=== PATIENT | female | born 1975 | race Caucasian/White ===

== ENCOUNTER → 2016-07-25 | Outpatient (CLI) | payer BC ==
--- NOTE | 2016-07-25 14:28 | CR ---
EXAMINATION: Left ankle HISTORY: Pain COMPARISON: None TECHNIQUE: 3 views FINDINGS/IMPRESSION: There is screw and plate hardware fixating a nondisplaced distal tibial fractur e. Screw and plate hardware fixate the adjacent distal fibula. The remaining osseous structures and joint spaces appear intact.
== END ==
LOC: MW.CHORTHO 07:46
PROVIDERS: ATTEND Physician Assistant
DX: M25.572 Pain in left ankle and joints of left foot (principal); Z96.7 Presence of other bone and tendon implants; S82.302A Unspecified fracture of lower end of left tibia, initial encounter for closed fracture
CPT/HCPCS: 73610-26-LT; 73610-LT

== ENCOUNTER 2017-01-24 06:25 | Day surgery (SDC) | payer BC ==
[~2017-01-24 06:25] MED LIST: Bupivacaine 0.25% 10 ML SDV ONE; Clindamycin Phosphate in D5W 600 MG in Premix Bag 50 BAG IV SCH; Lactated Ringers 1,000 ML IV SCH
[2017-01-24] MEDS ORDERED: fentaNYL 100 MCG/2 ML SDV ONE (07:38)
[2017-01-24] MEDS ORDERED: Propofol 200 MG/20 ML SDV ONE (07:38)
[2017-01-24] MEDS ORDERED: Lidocaine 2% 5 ML SDV ONE (07:38)
[2017-01-24] MEDS ORDERED: Midazolam 1 MG/ML 2 ML SDV ONE (07:39)
[2017-01-24] MEDS ORDERED: Ondansetron 4 MG/2 ML SDV ONE (07:39)
[2017-01-24] MEDS ORDERED: Succinylcholine/Normal Saline 200 MG/10 ML Syringe ONE (07:39)
[2017-01-24] MEDS ORDERED: Ketorolac 30 MG/ML SDV ONE (07:39)
--- NOTE | 2017-01-24 07:53 | PCM.PREANE ---
Preanesthetic Assessment - Procedure Proposed Procedure: Removal of hardware Left distal tib-fib - Anesthesia/Transfusion/Family Hx Anesthesia History: Prior Anesthesia Without Reaction Transfusion History: No Prior Transfusion(s) - Review of Systems General: No Symptoms Pulmonary: No Symptoms Cardiovascular: No Symptoms Gastrointestinal: Other (IBS) Neurological: Gait Disturbance (due to left leg pain) Other: Reports: Depression, Anxiety - Physical Assessment O2 Sat by Pulse Oximetry: 97 Respiratory Rate: 16 Vital Signs: Last Vital Signs Temp 98.1 F 01/24/17 07:02 Pulse 81 01/24/17 07:02 Resp 16 01/24/17 07:02 BP 126/88 01/24/17 07:02 Pulse Ox 97 01/24/17 07:02 Height: 5 ft 4 in Weight: 157 lb ASA Class: 2 Mental Status: Alert & Oriented x3 Dentition: Reports: Normal Dentition Thyro-Mental Finger Breadths: 4 Mouth Opening Finger Breadths: 3 ROM/Head Extension: Full Lungs: Clear to Auscultation, Normal Respiratory Effort Cardiovascular: Regular Rate, Regular Rhythm, No Murmurs - Allergies Allergies/Adverse Reactions: Allergies Allergy/AdvReac Type Severity Reaction Status Date / Time cefuroxime axetil Allergy Hives Verified 09/01/14 13:26 [From Ceftin] levofloxacin [From Levaquin] Allergy Hives Verified 09/01/14 13:26 pineapple Allergy Stomach Verified 09/01/14 13:26 Upset Cherries Allergy Stomach Uncoded 09/01/14 13:26 Upset Green Beans Allergy Stomach Uncoded 09/01/14 13:26 Upset Rashad Appleton Allergy Sneezing Uncoded 09/01/14 13:26 Tomato Allergy Stomach Uncoded 09/01/14 13:26 Upset tuna Allergy Stomach Uncoded 01/18/17 14:20 Upset - Blood Blood Available: No Product(s) Available: None - Acknowledgements Anesthesia Type Planned: General Anesthesia (LMA) Pt an Appropriate Candidate for the Planned Anesthesia: Yes Alternatives and Risks of Anesthesia Discussed w Pt/Guardian: Yes Pt/Guardian Understands and Agrees with Anesthesia Plan: Yes PreAnesthesia Questionnaire - Past Health History Medical/Surgical History: Denies Medical/Surgical History Cardiovascular History: Reports: None Respiratory History: Reports: None Gastrointestinal History: Reports: Chronic Constipation, Irritable Bowel Syndrome Other Gastrointestinal History: Occasional heartburn Genitourinary History: Reports: None [employer] History: Reports: Other OB/BYN History: Abnormal PAP, 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, hx LEEP Musculoskeletal History: Reports: Fracture, Fibromyalgia Neurological History: Reports: None Psychiatric History: Reports: Anxiety, Depression Other Endocrine/Metabolic History: History Gestational diabetes in Other Hematologic History: I think I bleed easily "bruise easily" Immunologic History: Reports: None Oncologic (Cancer) History: Reports: Cervix Dermatologic History: Reports: None - Past Surgical History Head Surgeries/Procedures: Reports: None HEENT Surgical History: Reports: Oral Surgery, Tonsillectomy Female Surgical History: Reports: Hysterectomy, LEEP Musculoskeletal Surgical History: Reports: ORIF Other Musculoskeletal Surgeries/Procedures:: ORIF fx left tib/fib - SUBSTANCE USE Smoking Status *Q: Former Smoker Recreational Drug Use History: No - CURRENT (IN HOUSE) MEDS Current Meds: Current Medications Hydrocodone Bitart/Acetaminophen (Peak 325-5 Mg) 1 - 2 tab PO Q4H PRN PRN Reason: Pain Clindamycin Phosphate 600 mg/ (Premix) 50 mls @ 100 mls/hr IV ONCALL [facility] Last Admin: 01/24/17 07:00 Dose: 100 mls/hr Lactated Ringer's (Ringers, Lactated) 1,000 mls @ 100 mls/hr IV ASDIRECTED [facility] Last Admin: 01/24/17 06:55 Dose: 100 mls/hr Discontinued Medications Bupivacaine HCl (Sensorcaine-Mpf 0.25%) Confirm Administered Dose 20 ml .ROUTE .STK-MED ONE Stop: 01/23/17 15:03 Fentanyl (Sublimaze) Confirm Administered Dose 300 mcg .ROUTE .STK-MED ONE Stop: 01/24/17 07:39 Ketorolac Tromethamine (Toradol) Confirm Administered Dose 30 mg .ROUTE .STK- MED ONE Stop: 01/24/17 07:40 Lidocaine (Xylocaine-Mpf 2%) Confirm Administered Dose 10 ml .ROUTE .STK-MED ONE Stop: 01/24/17 07:39 Midazolam HCl (Versed 1 Mg/Ml) Confirm Administered Dose 2 mg .ROUTE .STK-MED ONE Stop: 01/24/17 07:40 Ondansetron HCl (Zofran) Confirm Administered Dose 4 mg .ROUTE .STK-MED ONE Stop: 01/24/17 07:40 Propofol (Diprivan 20 Ml) Confirm Administered Dose 400 mg .ROUTE .STK-MED ONE Stop: 01/24/17 07:39 Succinylcholine Chloride (Succinylcholine In Ns Pf) Confirm Administered Dose 200 mg .ROUTE .STK-MED ONE Stop: 01/24/17 07:40
[2017-01-24] MEDS ORDERED: Acetaminophen/HYDROcodone 325-5 MG Tab PO PRN (08:00)
--- NOTE | 2017-01-24 09:28 | PCM.OPNOTE ---
- General Post-Op/Procedure Note Date of Surgery/Procedure: 01/24/17 Operative Procedure(s): HWR left distal tibia and fibula Post-Op Diagnosis: painful retained HW left ankle Anesthesia Technique: General LMA Primary Surgeon: Manju Lazar Lith[employer] General Worker: Mckenzie Rodríguez in mLs: 5 Condition: Good Free Text/Narrative:: tt=27 min #[id number]
[2017-01-24] MEDS: fentaNYL 100 MCG/2 ML SDV IVPUSH PRN ×2 (09:57→10:07)
--- NOTE | 2017-01-24 10:01 | PCM.POSTAN ---
POST ANESTHESIA ASSESSMENT - MENTAL STATUS Mental Status: Alert, Oriented - RESPIRATORY Respiratory Status: Respiratory Rate WNL, Airway Patent, O2 Saturation Stable - CARDIOVASCULAR CV Status: Pulse Rate WNL, Blood Pressure Stable - GASTROINTESTINAL GI Status: No Symptoms - PAIN Pain Score: 7 (will treat) - POST OP HYDRATION Hydration Status: Adequate & Stable
[2017-01-24] MEDS ORDERED: fentaNYL 100 MCG/2 ML SDV IVPUSH PRN (10:38)
--- NOTE | 2017-01-24 11:42 | PCM48HPAN ---
Post Anesthesia Note - EVALUATION WITHIN 48HRS OF ANESTHETIC Vital Signs in Normal Range: Yes Patient Participated in Evaluation: Yes Respiratory Function Stable: Yes Airway Patent: Yes Cardiovascular Function Stable: Yes Hydration Status Stable: Yes Pain Control Satisfactory: Yes (probably will need analgesics) Nausea and Vomiting Control Satisfactory: Yes Mental Status Recovered: Yes
--- NOTE | 2017-01-24 14:10 | OR ---
SURGEON: Manju Lazar MD DATE OF PROCEDURE: 01/24/2017 PREOPERATIVE DIAGNOSIS: Painful retained hardware, left distal tibia and fibula. POSTOPERATIVE DIAGNOSIS: Painful retained hardware, left distal tibia and fibula. PROCEDURE: Hardware removal, left distal tibia and fibula. COUNTRY SINGER: Mckenzie Rodríguez PA-C. ANESTHESIA: General. ESTIMATED BLOOD LOSS: 5 mL. TOURNIQUET TIME: 27 minutes. COMPLICATIONS: None. DVT PROPHYLAXIS: Not indicated. IMPLANTS USED: None. BRIEF HISTORY: Nany is a 41-year-old female, who has had complaint of progressive left ankle pain. She previously underwent open reduction and internal fixation of a left distal tibia and fibula fracture in [facility]. She went on to heal the fracture well. She continued to be bothered by the hardware. At that time, I recommended surgical removal. The risks and goals of the procedure were discussed with the patient and were documented preoperatively. She agreed to proceed. DESCRIPTION OF PROCEDURE: The patient was properly identified and brought to the operating room. She was transferred from the OR cart and placed on operating table in supine position. General anesthesia was administered. After adequate anesthesia was obtained, a well-padded tourniquet was applied to the left lower extremity. The left lower extremity was then prepped in standard fashion using ChloraPrep solution. It was then sterilely draped. A time-out was performed to ensure correct site and procedure. Preoperative antibiotics were given. The surgical site had been marked preoperatively. An Esmarch was used to exsanguinate the left lower extremity and the tourniquet was inflated to 250 mmHg. An incision was made over the anterior tibia over the site of the previous incision. The subcutaneous tissues were incised. The anterior tibialis tendon was identified and was retracted. The plate was immediately evident. The soft tissue was cleared from the plate. The screws were exposed. The inter- fragmentary as well as the screws from the plate were removed without difficulty. The plate was then removed. The wound was copiously irrigated with saline solution. The deep tissues were closed with 0 Vicryl. The subcutaneous tissues were closed with 2-0 Vicryl and the skin was closed with mikel. I then turned my attention to the lateral incision. Incision was made over the site of the previous incision. The subcutaneous tissues were dissected using a tenotomy scissor. The superficial peroneal nerve was not encountered. The peroneal tendon and musculature were identified. Just anterior to this, the plate was identified. It was cleared of soft tissue. The screws were removed without difficulty and the plate was removed. The wound was again copiously irrigated with saline solution. The fascial layer was loosely reapproximated using 0 Vicryl. The subcutaneous tissues were closed with 2-0 Vicryl and the skin was closed with mikel. The tourniquet was deflated. 0.5% Marcaine was injected around the incision sites. Xeroform gauze was placed over the wound and a bulky dressing was applied. She was awakened from her anesthetic and transferred back to the operating room cart. She was brought to recovery room in stable condition. All needle and sponge counts were correct. BROCK REDDY /[id number]
[2017-01-24 14:33] VITALS: BP 111/57
--- NOTE | 2017-01-25 09:15 | CR ---
EXAMINATION: Left ankle HISTORY: Hardware removal COMPARISON: 12/05/2016 TECHNIQUE: Single view FINDINGS/IMPRESSION: Postoperative control films demonstrate interval removal of distal tibia and fib belle hardware.
== END 2017-01-24 12:15 | disposition home or self-care (01) ==
LOC: MW.SDS 06:25
PROVIDERS: ATTEND Orthopaedic Surgery
DX: T84.84XA Pain due to internal orthopedic prosthetic devices, implants and grafts, initial encounter (principal); M79.7 Fibromyalgia; K58.1 Irritable bowel syndrome with constipation; F41.9 Anxiety disorder, unspecified; F32.9 Major depressive disorder, single episode, unspecified; Z87.891 Personal history of nicotine dependence; Z88.1 Allergy status to other antibiotic agents; Z91.013 Allergy to seafood; Z91.018 Allergy to other foods; Z91.048 Other nonmedicinal substance allergy status; Z79.899 Other long term (current) drug therapy; Z98.890 Other specified postprocedural states
CPT/HCPCS: 20680; 76000; A9270; J1885; J2250; J2405; J3010; J7120; 01480; 88300; J2704

== ENCOUNTER 2017-10-24 20:19 | Emergency (ER) | payer BC ==
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
[2017-10-24] MEDS: Morphine 2 MG/ML Syringe IVPUSH ONE ×3 (20:32→23:03)
[2017-10-24] MEDS: Ondansetron 4 MG/2 ML SDV IVPUSH ONE (20:34)
[2017-10-24] MEDS: Ondansetron 4 MG/2 ML SDV ONE (20:44)
[2017-10-24] MEDS: Diphtheria,Pertussis(Acell),Tetanus Vaccine 0.5 ML Syringe IM ONE (21:06)
[2017-10-24 21:08] LABS: CHLORIDE,CL 104 mmol/L (98-107); SODIUM,NA 140 mmol/L (136-145)
[2017-10-24] MEDS: Sulfamethoxazole/Trimethoprim 800-160 MG Tab PO ONE (21:10)
[2017-10-24] MEDS: Morphine 2 MG/ML Syringe ONE (21:51)
[2017-10-24] MEDS: Lidocaine 1% 50 ML MDV ONE (21:51)
[2017-10-24] MEDS: Bacitracin Oint 1 GM U/D Packet TOP ONE (22:15)
[2017-10-24] MEDS: Lidocaine 1% 20 ML MDV INJECT ONE (22:59)
[2017-10-24 23:10] VITALS: BP 133/96
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
== END 2017-10-24 23:20 | disposition home or self-care (01) ==
LOC: MW.ED 20:19
DX: S62.632B Displaced fracture of distal phalanx of right middle finger, initial encounter for open fracture (principal); S62.634B Displaced fracture of distal phalanx of right ring finger, initial encounter for open fracture; S62.636B Displaced fracture of distal phalanx of right little finger, initial encounter for open fracture; S62.622A Displaced fracture of middle phalanx of right middle finger, initial encounter for closed fracture; S62.624A Displaced fracture of middle phalanx of right ring finger, initial encounter for closed fracture; Z23 Encounter for immunization; Z91.018 Allergy to other foods; Z88.1 Allergy status to other antibiotic agents; Z88.8 Allergy status to other drugs, medicaments and biological substances; V86.69XA Passenger of other special all-terrain or other off-road motor vehicle injured in nontraffic accident, initial encounter
CPT/HCPCS: 36415; 64450; 71045; 72040; 72170; 73130; 80053; 85025; 90471; 90715; 96374; 96375; 96376; 99284; A9270; J2270; J2405

== ENCOUNTER 2017-10-26 08:59 | Day surgery (SDC) | payer OTHER, BC ==
[~2017-10-26 08:59] MED LIST changes: +Acetaminophen/HYDROcodone 325-5 MG Tab PO PRN; -Bupivacaine 0.25% 10 ML SDV ONE; +Bupivacaine 0.25%/EPINEPHrine 1:200,000 10 ML SDV INJECT ONE; +Bupivacaine 0.25%/EPINEPHrine 1:200,000 10 ML SDV ONE; -Clindamycin Phosphate in D5W 600 MG in Premix Bag 50 BAG IV SCH; +Lidocaine 2% 5 ML SDV ONE; +Midazolam 1 MG/ML 2 ML SDV ONE; +Ondansetron 4 MG/2 ML SDV ONE; +Propofol 200 MG/20 ML SDV ONE; +ceFAZolin/Dextrose,Iso-Osmotic 2 GM/50 ML Duplex Bag IV ONE; +fentaNYL 250 MCG/5 ML SDV ONE
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
[2017-10-26] MEDS ORDERED: Clindamycin Phosphate in D5W 600 MG in Premix Bag 1 BAG IV ONE ×2 (10:00)
[2017-10-26] MEDS ORDERED: Phenylephrine/Normal Saline 100 MCG/ML 10 ML Syringe ONE (11:27)
[2017-10-26] MEDS ORDERED: ePHEDrine 50 MG/ML SDV ONE (11:39)
[2017-10-26] MEDS ORDERED: fentaNYL 100 MCG/2 ML SDV IVPUSH PRN (11:41)
[2017-10-26] MEDS ORDERED: Ketorolac 30 MG/ML SDV ONE (11:53)
--- NOTE | 2017-10-26 12:31 | PCM.POSTAN ---
POST ANESTHESIA ASSESSMENT - MENTAL STATUS Mental Status: Alert, Oriented - RESPIRATORY Respiratory Status: Respiratory Rate WNL, Airway Patent, O2 Saturation Stable - CARDIOVASCULAR CV Status: Pulse Rate WNL, Blood Pressure Stable - GASTROINTESTINAL GI Status: No Symptoms - PAIN Pain Score: 0 - POST OP HYDRATION Hydration Status: Adequate & Stable
--- NOTE | 2017-10-26 13:36 | PCM48HPAN ---
Post Anesthesia Note - EVALUATION WITHIN 48HRS OF ANESTHETIC Vital Signs in Normal Range: Yes Patient Participated in Evaluation: Yes Respiratory Function Stable: Yes Airway Patent: Yes Cardiovascular Function Stable: Yes Hydration Status Stable: Yes Pain Control Satisfactory: Yes Nausea and Vomiting Control Satisfactory: Yes Mental Status Recovered: Yes Resp Rate: 14 - COMMENTS/OBSERVATIONS Free Text/Narrative:: Pt doing well postop with no complaints of pain or nausea at this time.
[2017-10-26 16:00] VITALS: BP 108/60
--- NOTE | 2017-10-26 22:08 | PCM.OPNOTE ---
- General Post-Op/Procedure Note Date of Surgery/Procedure: 10/26/17 Operative Procedure(s): closed reduction pin fixation of the right middle and ring finger middle pahlanx fractures, nail bed repair of the right middle, ring and small fingers Pre Op Diagnosis: right middle and ring finger middle pahlanx fractures, nail bed lacerations of the right middle, ring and small fingers Post-Op Diagnosis: Same Anesthesia Technique: General LMA, Local Primary Surgeon: Chapis Eid [employer] Science Teacher: Carleen Suarez Reason Naval Science Teacher Was Necessary: retraction, prepping draping and closure assistance Complications: None Condition: Good Free Text/Narrative:: Intake & Output 10/26/17 10/26/17 10/26/17 07:59 15:59 23:59 Intake Total 1100 Balance 1100
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
== END 2017-10-26 13:45 | disposition home or self-care (01) ==
LOC: MW.SDS 08:59
PROVIDERS: ATTEND Plastic Surgery
DX: S62.622A Displaced fracture of middle phalanx of right middle finger, initial encounter for closed fracture (principal); S62.624A Displaced fracture of middle phalanx of right ring finger, initial encounter for closed fracture; S61.312A Laceration without foreign body of right middle finger with damage to nail, initial encounter; S61.314A Laceration without foreign body of right ring finger with damage to nail, initial encounter; S61.316A Laceration without foreign body of right little finger with damage to nail, initial encounter; S62.632A Displaced fracture of distal phalanx of right middle finger, initial encounter for closed fracture; S62.634A Displaced fracture of distal phalanx of right ring finger, initial encounter for closed fracture; S62.636A Displaced fracture of distal phalanx of right little finger, initial encounter for closed fracture; F32.9 Major depressive disorder, single episode, unspecified; F41.9 Anxiety disorder, unspecified; Z87.891 Personal history of nicotine dependence; Z79.899 Other long term (current) drug therapy; V86.99XA Unspecified occupant of other special all-terrain or other off-road motor vehicle injured in nontraffic accident, initial encounter; Z88.1 Allergy status to other antibiotic agents; Z91.018 Allergy to other foods
CPT/HCPCS: 11760; 26727; 26755; J1885; J2250; J2370; J2405; J2704; J3010; J3490; J7120; 01820; J0690